=== PATIENT | female | born 1975 | race Caucasian/White ===

== ENCOUNTER 2016-12-12 22:31 | Emergency (ER) | payer MEDICAID ==
[~2016-12-12] VITALS: Ht 157.5 cm; Wt 81.8 kg
[2016-12-12 22:36] VITALS: BP 132/96; TEMP 97.7
[2016-12-12 23:36] LABS: PH 6 (5-8); SQUAMOUS EPITHELIAL 0-2 /hpf; URINE APPEARANCE Hazy; URINE BACTERIA Rare /hpf; URINE BILIRUBIN Negative (NEGATIVE); URINE BLOOD 1+ (NEGATIVE); URINE COLOR Yellow; URINE GLUCOSE Negative (NEGATIVE); URINE KETONE Negative (NEGATIVE); URINE UROBILINOGEN Negative (NEGATIVE)
[2016-12-12] MEDS ORDERED: DOXYCYCLINE HY100 MG PO (23:36)
[2016-12-12] MEDS ORDERED: FLAGYL500 MG PO (23:37)
[2016-12-12] MEDS ORDERED: NORCO 325 MG-51 TAB PO (23:44)
[2016-12-13 00:12] VITALS: PULSE 95
[2016-12-13 03:20] LABS: CHLAMYDIA/TRACH by PCR Female NOT DETECTED; NEISSERIA GON by PCR Female NOT DETECTED
== END 2016-12-13 00:13 | disposition home or self-care (01) ==
LOC: COL.ER 22:31
PROVIDERS: Physician Assistant
DX: N73.9 Female pelvic inflammatory disease, unspecified (principal); A59.09 Other urogenital trichomoniasis
CPT/HCPCS: J0696

== ENCOUNTER → 2018-06-09 | Outpatient (CLI) | payer MEDICAID ==
[~2018-06-09] MED LIST: DOXYCYCLINE HY100 MG PO; FLAGYL500 MG PO; NORCO 325 MG-51 TAB PO
== END ==
LOC: COL.RAD 12:00
DX: C18.2 Malignant neoplasm of ascending colon (principal); K76.89 Other specified diseases of liver; R91.8 Other nonspecific abnormal finding of lung field
CPT/HCPCS: Q9967

== ENCOUNTER 2018-08-07 19:22 | Emergency (ER) | payer MEDICAID ==
[~2018-08-07] VITALS: Ht 160 cm; Wt 77.3 kg
[~2018-08-07 19:22] MED LIST changes: +DILAUDID 2MG TAB2 MG PO
[2018-08-07 19:26] VITALS: TEMP 97.7
[2018-08-07 20:01] LABS: BASO # 0.1 (0.0-0.2); BASO % 1.5 % (0.0-2.0); EOS # 0.1 (0.0-0.7); EOS % 3.3 % (0-4.0); GRAN # 2.3 (1.4-6.5); GRAN % 66.8 % (42.2-75.2); HEMATOCRIT 36.8 % (37.0-47.0); HEMOGLOBIN 12.2 g/dl (12.5-16.0); LYMPH # 0.6 (1.2-3.4); LYMPH % 16.9 % (20.0-51.0); MEAN CELL VOLUME 95 fl (80.0-100.0); MEAN CORPUSCULAR HEMOGLOBIN 31 pg (27.0-31.0); MEAN CORPUSCULAR HGB CONC 33 g/dl (33.0-37.0); MEAN PLATELET VOLUME 10.9 fl (7.4-10.4); MONO # 0.4 (0.1-0.6); MONO % 11.2 % (1.7-9.3); PLATELET COUNT 230 K/mm3 (130-400); RED BLOOD COUNT 3.89 M/mm3 (4.10-5.30)
[2018-08-07 20:14] LABS: BILIRUBIN,TOTAL 1.3 mg/dL (0.0-1.0); C-REACTIVE PROTEIN 1.3 mg/dL (0.0-0.9); CREATININE, serum 0.47 mg/dL (0.52-1.25); TOTAL PROTEIN 7.2 gm/dL (6.4-8.2)
[2018-08-07] MEDS ORDERED: DILAUDID 2MG TAB2 MG PO (21:54)
[2018-08-07 22:06] VITALS: BP 130/66; PULSE 70
== END 2018-08-07 22:08 | disposition home or self-care (01) ==
LOC: COL.ER 19:22
PROVIDERS: Family Medicine
DX: C18.9 Malignant neoplasm of colon, unspecified (principal); C79.9 Secondary malignant neoplasm of unspecified site
CPT/HCPCS: J1170; J2405; J2550; J7030

== ENCOUNTER 2018-09-10 09:45 | Emergency (ER) | payer MEDICAID ==
[~2018-09-10] VITALS: Ht 160 cm; Wt 77.3 kg
[2018-09-10 09:52] VITALS: TEMP 98.8
[2018-09-10] MEDS ORDERED: LONSURF 20 MG-1 EACH PO (10:07)
[2018-09-10] MEDS ORDERED: ZOFRAN8 MG PO (10:07)
[2018-09-10] MEDS ORDERED: ADVIL200 MG PO (10:08)
[2018-09-10] MEDS ORDERED: DILAUDID 4MG TAB4 MG PO (10:08)
[2018-09-10 10:31] LABS: BASO % 0.2 % (0.0-2.0); EOS # 0.1 (0.0-0.7); EOS % 1.8 % (0-4.0); GRAN # 5.1 (1.4-6.5); GRAN % 89.3 % (42.2-75.2); HEMATOCRIT 39.8 % (37.0-47.0); LYMPH # 0.3 (1.2-3.4); LYMPH % 5.8 % (20.0-51.0); MEAN CELL VOLUME 95 fl (80.0-100.0); MEAN CORPUSCULAR HEMOGLOBIN 31 pg (27.0-31.0); MEAN CORPUSCULAR HGB CONC 33 g/dl (33.0-37.0); MEAN PLATELET VOLUME 11.3 fl (7.4-10.4); MONO # 0.1 (0.1-0.6); MONO % 2.5 % (1.7-9.3); PLATELET COUNT 216 K/mm3 (130-400); RED BLOOD COUNT 4.19 M/mm3 (4.10-5.30); REDCELL DISTRIBUTION WIDTH-CV 13.1 % (11.5-14.5)
[2018-09-10 10:42] LABS: ALBUMIN 4.1 gm/dL (3.5-5.0); CALCIUM 9.3 mg/dL (8.4-10.2); CREATININE, serum 0.53 mg/dL (0.52-1.25); POTASSIUM 4.3 mmol/L (3.4-5.0); TOTAL PROTEIN 7.9 gm/dL (6.4-8.2)
[2018-09-10] MEDS ORDERED: PHENERGAN 25 TA25 MG PO (11:39)
[2018-09-10 13:02] VITALS: BP 125/83; PULSE 92
== END 2018-09-10 13:04 | disposition home or self-care (01) ==
LOC: COL.ER 09:45
PROVIDERS: Emergency Medicine
DX: R11.2 Nausea with vomiting, unspecified (principal); R10.9 Unspecified abdominal pain; C18.9 Malignant neoplasm of colon, unspecified; C79.9 Secondary malignant neoplasm of unspecified site; Z79.1 Long term (current) use of non-steroidal anti-inflammatories (NSAID); Z85.038 Personal history of other malignant neoplasm of large intestine; Z90.49 Acquired absence of other specified parts of digestive tract
CPT/HCPCS: C9113; J1170; J2550; J7030; Q9967

== ENCOUNTER 2018-09-17 16:49 | Emergency (ER) | payer MEDICAID ==
[~2018-09-17] VITALS: Ht 157.5 cm; Wt 77.3 kg
[~2018-09-17 16:49] MED LIST changes: +ADVIL200 MG PO; +DILAUDID 4MG TAB4 MG PO; +LONSURF 20 MG-1 EACH PO; +PHENERGAN 25 TA25 MG PO; +ZOFRAN8 MG PO
[2018-09-17 16:54] VITALS: TEMP 98.2
[2018-09-17 17:48] LABS: COLLECTION METHOD CLEAN CATCH
[2018-09-17 18:01] LABS: BASO % 0.9 % (0.0-2.0); EOS # 0.1 (0.0-0.7); EOS % 2.3 % (0-4.0); GRAN # 3.5 (1.4-6.5); GRAN % 74.7 % (42.2-75.2); HEMOGLOBIN 12.3 g/dl (12.5-16.0); LYMPH # 0.8 (1.2-3.4); LYMPH % 16.4 % (20.0-51.0); MEAN CELL VOLUME 95 fl (80.0-100.0); MEAN CORPUSCULAR HEMOGLOBIN 32 pg (27.0-31.0); MEAN CORPUSCULAR HGB CONC 33 g/dl (33.0-37.0); MEAN PLATELET VOLUME 11.5 fl (7.4-10.4); MONO # 0.3 (0.1-0.6); MONO % 5.5 % (1.7-9.3); PLATELET COUNT 236 K/mm3 (130-400); REDCELL DISTRIBUTION WIDTH-CV 12.8 % (11.5-14.5)
[2018-09-17 18:02] LABS: HEMATOCRIT 36.9 % (37.0-47.0)
[2018-09-17 18:05] LABS: ALBUMIN 4.2 gm/dL (3.5-5.0); BILIRUBIN,TOTAL 1.6 mg/dL (0.0-1.0); CALCIUM 9.4 mg/dL (8.4-10.2); CREATININE, serum 0.5 mg/dL (0.52-1.25); INR 1.2 (0.8-3.0); POTASSIUM 3.7 mmol/L (3.4-5.0); PROTHROMBIN TIME 13.9 SECONDS (9.7-12.8); TOTAL PROTEIN 7.8 gm/dL (6.4-8.2)
[2018-09-17 18:07] LABS: MUCOUS Present /lpf; PH 6 (5-8); URINE APPEARANCE Clear; URINE BACTERIA Rare /hpf; URINE BILIRUBIN Negative (NEGATIVE); URINE BLOOD 2+ (NEGATIVE); URINE COLOR Yellow; URINE GLUCOSE Negative (NEGATIVE); URINE KETONE Negative (NEGATIVE); URINE LEUKOCYTE ESTERASE Trace (NEGATIVE); URINE NITRATE Negative (NEGATIVE); URINE PROTEIN(semi-quant) Negative (NEGATIVE); URINE RBC 0-2 /hpf; URINE UROBILINOGEN Negative (NEGATIVE)
[2018-09-17 18:07] LABS: PARTIAL THROMBOPLASTIN TIME 31.6 SECONDS (26.0-37.0)
[2018-09-17] MEDS ORDERED: NORCO 325 MG-101 TAB PO (20:27)
[2018-09-17] MEDS ORDERED: ZOFRAN ODT4 MG SL (20:27)
[2018-09-17] MEDS ORDERED: VANDAZOLE 0.75%70 GM VG (20:27)
[2018-09-17 21:28] VITALS: BP 122/87; PULSE 85
== END 2018-09-17 21:28 | disposition home or self-care (01) ==
LOC: COL.ER 16:49
PROVIDERS: Emergency Medicine
DX: C18.9 Malignant neoplasm of colon, unspecified (principal); C78.7 Secondary malignant neoplasm of liver and intrahepatic bile duct; N76.0 Acute vaginitis; B96.89 Other specified bacterial agents as the cause of diseases classified elsewhere; Z90.49 Acquired absence of other specified parts of digestive tract
CPT/HCPCS: J1170; J2765; J3010; J7030; Q9967

== ENCOUNTER → 2018-09-29 | Outpatient (CLI) | payer MEDICAID ==
[~2018-09-29] MED LIST changes: +NORCO 325 MG-101 TAB PO; +VANDAZOLE 0.75%70 GM VG; +ZOFRAN ODT4 MG SL
== END ==
LOC: COL.RAD 13:43
DX: C18.9 Malignant neoplasm of colon, unspecified (principal); C78.7 Secondary malignant neoplasm of liver and intrahepatic bile duct
CPT/HCPCS: A9585

== ENCOUNTER 2018-10-26 19:59 | Emergency (ER) | payer MEDICAID ==
[~2018-10-26] VITALS: Ht 160 cm; Wt 72.7 kg
[2018-10-26 20:02] VITALS: TEMP 99.6
[2018-10-26 20:48] LABS: MEAN CELL VOLUME 97 fl (80.0-100.0); MEAN CORPUSCULAR HGB CONC 33 g/dl (33.0-37.0); MEAN PLATELET VOLUME 10.3 fl (7.4-10.4); PLATELET COUNT 216 K/mm3 (130-400); RED BLOOD COUNT 2.63 M/mm3 (4.10-5.30); REDCELL DISTRIBUTION WIDTH-CV 17.7 % (11.5-14.5)
[2018-10-26 21:08] LABS: ALANINE AMINOTRANSFERASE 82 U/L (9-52); ALBUMIN 3.5 gm/dL (3.5-5.0); ALKALINE PHOSPHATASE 731 U/L (50-136); ANION GAP 6 mmol/L (7-16); AST,SGOT 134 U/L (15-37); BLOOD UREA NITROGEN 12 mg/dL (7-17); C-REACTIVE PROTEIN 7.6 mg/dL (0.0-0.9); CALCIUM 8.4 mg/dL (8.4-10.2); CARBON DIOXIDE 26 mmol/L (22-30); CHLORIDE 103 mmol/L (98-107); CREATININE, serum 0.57 mg/dL (0.52-1.25); GLUCOSE 99 mg/dL (74-106); LIPASE 57 U/L (23-300); POTASSIUM 3.9 mmol/L (3.4-5.0); SODIUM 135 mmol/L (137-145); TOTAL PROTEIN 7.2 gm/dL (6.4-8.2)
[2018-10-26 21:11] LABS: HEMATOCRIT 25.6 % (37.0-47.0); HEMOGLOBIN 8.4 g/dl (12.5-16.0); MEAN CORPUSCULAR HEMOGLOBIN 32 pg (27.0-31.0)
[2018-10-26] MEDS ORDERED: REGLAN 5MG T5 MG/TAB PO (21:16)
[2018-10-26 21:18] LABS: ANISOCYTOSIS 2+; BAND 6 % (0-10); EOSINOPHIL 3 % (0-4); HYPOCHROMIA 2+; LYMPHOCYTE 39 % (20.0-51.0); MICROCYTOSIS 1+; NEUTROPHILS 42 % (42.0-75.2); PLATELET ESTIMATE NORMAL (NORMAL)
[2018-10-26 21:20] LABS: TROPONIN-I < 0.012 ng/mL (0.000-0.034)
[2018-10-26 21:48] LABS: COLLECTION METHOD CLEAN CATCH
[2018-10-26 21:54] LABS: MUCOUS Present /lpf; PH 6 (5-8); SQUAMOUS EPITHELIAL 0-2 /hpf; URINE APPEARANCE Clear; URINE BACTERIA None Seen /hpf; URINE BILIRUBIN Negative (NEGATIVE); URINE BLOOD Negative (NEGATIVE); URINE COLOR Yellow; URINE GLUCOSE Negative (NEGATIVE); URINE KETONE Negative (NEGATIVE); URINE LEUKOCYTE ESTERASE Negative (NEGATIVE); URINE NITRATE Negative (NEGATIVE); URINE PROTEIN(semi-quant) Negative (NEGATIVE); URINE RBC 0-2 /hpf
[2018-10-26] MEDS ORDERED: LEVAQUIN 5500 MG/TA1 PO (22:57)
[2018-10-26 23:17] VITALS: BP 106/69; PULSE 101
== END 2018-10-26 23:19 | disposition home or self-care (01) ==
LOC: COL.ER 19:59
PROVIDERS: Emergency Medicine
DX: C18.9 Malignant neoplasm of colon, unspecified (principal); D72.819 Decreased white blood cell count, unspecified
CPT/HCPCS: J1170; J2405; J3010; J7030; Q9967

== ENCOUNTER 2018-11-01 16:57 | Observation (INO) | payer MEDICAID ==
[~2018-11-01] VITALS: Ht 162.6 cm; Wt 78.9 kg
[~2018-11-01 16:57] MED LIST changes: +LEVAQUIN 5500 MG/TA1 PO; +REGLAN 5MG T5 MG/TAB PO
[2018-11-01 17:56] VITALS: BP 105/67; PULSE 85; TEMP 98.7
[2018-11-01] MEDS ORDERED: PRILOSEC10 MG PO (18:20)
[2018-11-01] MEDS ORDERED: ASPIRIN 81M81 MG/TA2 PO (18:20)
[2018-11-01] MEDS ORDERED: VITAMIN D31000 I1 PO (18:20)
--- NOTE | 2018-11-01 19:02 | NUR ---
Pt report given to ANGELINA Younger. Pt is A/O x3. Her breathing is even and unlabored on RA, no SOB. Pt currently reports R abdominal pain. Currently no nausea, pt requesting food. No N/T. POC discussed with patient. PAC accessed in office. Isolation precautions in place. Family at bedside, will continue to monitor.
[2018-11-01 19:29] VITALS: BP 101/72; PULSE 90; TEMP 98.6
[2018-11-01 19:57] LABS: BASO % 0.6 % (0.0-2.0); EOS % 0.6 % (0-4.0); GRAN # 1.7 (1.4-6.5); LYMPH # 0.8 (1.2-3.4); MEAN CELL VOLUME 98 fl (80.0-100.0); MEAN CORPUSCULAR HGB CONC 33 g/dl (33.0-37.0); MONO # 0.7 (0.1-0.6); MONO % 21.2 % (1.7-9.3); PLATELET COUNT 254 K/mm3 (130-400); RED BLOOD COUNT 2.69 M/mm3 (4.10-5.30); REDCELL DISTRIBUTION WIDTH-CV 19.1 % (11.5-14.5)
[2018-11-01 20:00] LABS: HEMATOCRIT 26.4 % (37.0-47.0); HEMOGLOBIN 8.8 g/dl (12.5-16.0); MEAN CORPUSCULAR HEMOGLOBIN 33 pg (27.0-31.0)
--- NOTE | 2018-11-01 20:00 | NUR ---
Patient resting in bed with family at bedside. Reports some pain in lower abdomen/chest- given PO dilaudid for pain. Assessment commpleted. Fluids started at 100 mls/hr. Maximipime administered. Infectious disease consulted- no new orders at this time. Ambulated with SBA to restroom.
[2018-11-01 20:02] LABS: INR 1.4 (0.8-3.0); PROTHROMBIN TIME 16.2 SECONDS (9.7-12.8)
[2018-11-01 20:08] LABS: ALBUMIN 3.5 gm/dL (3.5-5.0); BILIRUBIN,TOTAL 3.2 mg/dL (0.0-1.0); CALCIUM 8.8 mg/dL (8.4-10.2); CREATININE, serum 0.48 mg/dL (0.52-1.25); POTASSIUM 3.4 mmol/L (3.4-5.0); TOTAL PROTEIN 7.3 gm/dL (6.4-8.2)
[2018-11-01 21:38] LABS: COLLECTION METHOD CLEAN CATCH
[2018-11-01 21:56] LABS: MUCOUS Present /lpf; PH 7 (5-8); SQUAMOUS EPITHELIAL 0-2 /hpf; URINE APPEARANCE Clear; URINE BACTERIA None Seen /hpf; URINE BILIRUBIN Negative (NEGATIVE); URINE BLOOD Negative (NEGATIVE); URINE COLOR Yellow; URINE GLUCOSE Negative (NEGATIVE); URINE KETONE Negative (NEGATIVE); URINE LEUKOCYTE ESTERASE Negative (NEGATIVE); URINE NITRATE Negative (NEGATIVE); URINE PROTEIN(semi-quant) Negative (NEGATIVE); URINE RBC 0-2 /hpf; URINE UROBILINOGEN Negative (NEGATIVE)
[2018-11-01 23:25] VITALS: BP 119/72; PULSE 101; TEMP 100.2
--- NOTE | 2018-11-01 23:33 | NUR ---
Patient c/o some anxiety and difficulty sleeping. COREY Mendosa ordered 0.5 mg Ativan, administered to patient. Temperature of 100.2, Navya notified, continue to monitor, blood cultures ordered.
--- NOTE | 2018-11-02 01:23 | NUR ---
Patient given dilaudid 4 mg PO for pain, and wants to sleep. Given controls for lights. Patient had no other concers at this time.
[2018-11-02 03:55] VITALS: BP 110/71; PULSE 102; TEMP 98.8
--- NOTE | 2018-11-02 05:22 | NUR ---
Patient slept on/off last night. Given ativan and dilaudid for sleep/anxiety/pain. Temperature elevated around 0000, down to WNL this AM. IV antibiotics administered.
[2018-11-02 08:20] VITALS: BP 115/73; PULSE 98; TEMP 97.4
--- NOTE | 2018-11-02 09:40 | NUR ---
Patient alert and oriented x 4 and able to make needs known. Complained of pain to right side of abdomen. Given PRN Dilaudid per orders. Denies having needs at this time. Patient ordered breakfast. Sitting up in bed at this time.
--- NOTE | 2018-11-02 09:42 | NUR ---
LEON and LEON student met with the patient and patient's nitrator operator to discuss discharge plan. The patient lives in [place] with her two sons. Daniel who is twenty-five and her youngest son who is eight. She reports needing occasional assistance with ADLs and does not use any DME. She states that she receives support from her sons and friends in the community. The patient does not have a PCP, but was interested in being set up with Dr. Maye Leyva. LEON informed the patient's PA. She receives her medications at the [facility] and she reports no difficulties obtaining her meds. The patient does not have advanced directives, but she was interested in obtaining the form for DPOA-HC. LEON provided. The patient plans to return home upon discharge. SW to continue to follow.
--- NOTE | 2018-11-02 12:36 | NUR ---
Patient sitting up on side of bed upon entering room. Stated she felt a little dizzy, and had an upset stomach. Patient then went to the bathroom and had large amount of emesis. Emesis was yellow with small amount of food particles present.
[2018-11-02 12:44] VITALS: BP 125/82; PULSE 125; TEMP 98.6
[2018-11-02 15:00] VITALS: BP 113/72; PULSE 110; TEMP 98.8
--- NOTE | 2018-11-02 16:53 | NUR ---
Patient complained of feeling anxious. Given PRN Ativan per orders. Denies having nausea at this time. Has been sipping on fluids.
--- NOTE | 2018-11-02 18:18 | NUR ---
Complained of leve 7 pain to right side. Given PRN Dilaudid per orders, along wtih PRN Zofran per patient request due to medication making her feel nauseous last time she took it. Patient is off of precautions at this time, as respiratory virus panel came back negative. Sitting up in bed watching TV at this time. Call light is within reach. Three sons at bedside.
--- NOTE | 2018-11-02 19:23 | NUR ---
PT LAYING IN BED A+OX4, CHILDREN AT BEDSIDE. PT REPORTS PAIN ON RIGHT SIDE OF CHEST, PRN MEDS GIVEN. PORT IS FLUSHING WELL. NO NEEDS AT THIS TIME. SHIFT ASSESSMENT COMPLETE. CALL LIGHT IN REACH
[2018-11-02 20:14] VITALS: BP 105/64; PULSE 94; TEMP 99.4
--- NOTE | 2018-11-02 22:28 | NUR ---
pt is jaundice in eyes and skin. reports feeling cold- blanket given. no needs at this time. call light inreach
[2018-11-02 23:55] VITALS: BP 111/60; PULSE 97; TEMP 99
[2018-11-03] VITALS (7 sets, daily range): BP systolic 92–117; BP diastolic 53–77; PULSE 91–101; TEMP 98.6–101
--- NOTE | 2018-11-03 03:24 | NUR ---
pt reports sleeping well. feeling cold, denied needs for warm blanket- pt has 3 blankets on. no N/V. no needs at this time. call light in reach
--- NOTE | 2018-11-03 04:18 | NUR ---
pt has a fever 100.5. reports no needs at this time.call light in reach
--- NOTE | 2018-11-03 05:17 | NUR ---
pt had an uneventful night. denied N/V, pain. temp of 100.5 at 0300. pt reports feeling cold. no needs at this time.call light in reach .
[2018-11-03 05:59] LABS: BASO % 0.8 % (0.0-2.0); GRAN # 2.5 (1.4-6.5); GRAN % 62.3 % (42.2-75.2); LYMPH # 0.7 (1.2-3.4); LYMPH % 17.3 % (20.0-51.0); MEAN CELL VOLUME 101 fl (80.0-100.0); MEAN CORPUSCULAR HGB CONC 32 g/dl (33.0-37.0); MEAN PLATELET VOLUME 10.9 fl (7.4-10.4); MONO # 0.7 (0.1-0.6); MONO % 17.8 % (1.7-9.3); PLATELET COUNT 234 K/mm3 (130-400); RED BLOOD COUNT 2.49 M/mm3 (4.10-5.30); REDCELL DISTRIBUTION WIDTH-CV 19.2 % (11.5-14.5)
[2018-11-03 06:00] LABS: HEMATOCRIT 25.1 % (37.0-47.0); HEMOGLOBIN 8.1 g/dl (12.5-16.0); MEAN CORPUSCULAR HEMOGLOBIN 33 pg (27.0-31.0)
[2018-11-03 06:17] LABS: CALCIUM 8.6 mg/dL (8.4-10.2); CREATININE, serum 0.5 mg/dL (0.52-1.25); POTASSIUM 3.6 mmol/L (3.4-5.0); TOTAL PROTEIN 6.6 gm/dL (6.4-8.2)
--- NOTE | 2018-11-03 08:12 | NUR ---
Assessment complete.patient awake,a/ox4.rates pain at 2/10.patient eyes and skin are jaundiced.patient still has fevers.last fever was 100.3.ivf infusing to jammie cath to right chest.patient denies any other concerns at this time.will continue to monitor.call light in reach
--- NOTE | 2018-11-03 09:17 | NUR ---
Initial visit; Patient thanked Blower Insulator for looking in on her and offering prayer and encouragement. Blower Insulator will follow up.
--- NOTE | 2018-11-03 10:03 | NUR ---
Follow-up visit; Mrp Controller looked in on Mehreen following "Rounding" by Physician and staff. Patient thanked Mrp Controller and said she would let her know if she would like to talk later.
--- NOTE | 2018-11-03 11:35 | NUR ---
Met with pt regarding her care goals. She reports that she is changing oral medications for her cancer with the goal of keeping her cancer under control for as long as she can. She has a 25 year old son and an 8 year old son at home. Money is tight but she reports that they are managing. It is her goal to keep her cancer under some control for as long as possible to have time with her sons. She understands that this is not a cure but will help her get more time. Support provided.
--- NOTE | 2018-11-03 19:12 | NUR ---
report given to ANGELINA Younger.patient c/o right sided sharp pain,prn Dilaudid offered but patient declined and stated that she walked and it got better.Patient to have port to right chest taken out tomorrow.pt aware of surgery and NPO status as of midnight.pt remains febrile.No other concerns voiced at this time.
--- NOTE | 2018-11-03 19:20 | NUR ---
Patient resting in bed with son at bedside. Had a short episode of stabbing pain to right side of abdomen, lasting about 3 minutes, patient stood up and started walking around and pain subsided. Antibiotic administered, assessment completed. Patient now eating dinner and has no other needs at this time. Planning to take a shower later this evening.
--- NOTE | 2018-11-03 23:30 | NUR ---
Patient took a shower, IVF restarted after shower. Patient given new gown and socks. Given ambien for sleep, ordered PRN. No futher needs at this time and is getting ready to go to sleep.
[2018-11-04] VITALS (10 sets, daily range): BP systolic 92–104; BP diastolic 57–76; PULSE 62–85; TEMP 97.7–98.6
--- NOTE | 2018-11-04 00:30 | NUR ---
Patient spiked a temp of 101.0. COREY Mendosa notified, doesn't want to treat with tylenol due to elevated liver enzymes. This nurse is going to provide cool wash cloths for patient to try and cool her down. Will recheck if temperature continues to climb, will notify COREY Mendosa.
--- NOTE | 2018-11-04 05:23 | NUR ---
Patient slept on/off last night. Spiked a temperature of 101.0 at around 0000. Temp came down with cool cloths applied to neck and forehead. No pain, vitals stable. Took a shower last night. Npo since midnight for removal of port today. No further needs at this time.
[2018-11-04 06:01] LABS: BASO % 0.7 % (0.0-2.0); EOS % 0.7 % (0-4.0); GRAN # 2.8 (1.4-6.5); GRAN % 65.2 % (42.2-75.2); LYMPH # 0.8 (1.2-3.4); LYMPH % 17.7 % (20.0-51.0); MEAN CELL VOLUME 101 fl (80.0-100.0); MEAN CORPUSCULAR HGB CONC 32 g/dl (33.0-37.0); MEAN PLATELET VOLUME 11.1 fl (7.4-10.4); MONO # 0.7 (0.1-0.6); MONO % 15.2 % (1.7-9.3); PLATELET COUNT 256 K/mm3 (130-400); RED BLOOD COUNT 2.53 M/mm3 (4.10-5.30); REDCELL DISTRIBUTION WIDTH-CV 19.2 % (11.5-14.5)
[2018-11-04 06:11] LABS: HEMATOCRIT 25.6 % (37.0-47.0); HEMOGLOBIN 8.2 g/dl (12.5-16.0); MEAN CORPUSCULAR HEMOGLOBIN 32 pg (27.0-31.0)
[2018-11-04 06:15] LABS: ALBUMIN 3.1 gm/dL (3.5-5.0); CALCIUM 8.6 mg/dL (8.4-10.2); CREATININE, serum 0.52 mg/dL (0.52-1.25); POTASSIUM 3.5 mmol/L (3.4-5.0); TOTAL PROTEIN 6.8 gm/dL (6.4-8.2)
--- NOTE | 2018-11-04 08:16 | NUR ---
Patient is NPO. Spoke with Dr. Groves. Order to hold morning Heparin. Reports he will have surgical staff come get patient around 1130, go over preop with patient downstairs, and planning on having surgery to remove portacath to right chest at 1200. NS running at 50ml/hr via portacath. Reports pain to right side is at a 4 at this time, and declines wanting PRN pain medication. Voices no needs at this time. Resting in bed. Requested blinds to be pulled up to let in natural light.
--- NOTE | 2018-11-04 08:41 | NUR ---
Pt is A+Ox3, pleasant, denies SOB and CP but c/o chronic discomfort to rt upper chest (port site) that radiates up rt neck with certain movements. pt denies need for pain meds at this time. Port site to RU s redness and swellingm, fluids infusing at 50 cc/hr. Cap refill brisk, bilateral radial, pedal adn post tibial pulses 2+, finger grasp equal, no edema in extremities, etc. Independent to bathroom. Call light in reach, no further needs
--- NOTE | 2018-11-04 09:25 | NUR ---
DPOA-HC form completed and notorized. Copies given to pt. We reviewed her plans at home if she should become ill and need assistance and she actually seems to have a workable plan in place. She reports that she will be starting her 4th chemotherapy drug upon reciept and has several other options available to her. Support provided. She is hopeful for discharge later today.
--- NOTE | 2018-11-04 11:44 | NUR ---
Peripheral IV started to right hand prior to patient going down to surgery. Called and gave report to anesthesia at 1140, and patient was taken down to surgery at that time as well.
[2018-11-04] MEDS ORDERED: LEVAQUIN 5500 MG/TA1 PO (14:00)
[2018-11-04] MEDS ORDERED: DILAUDID 4MG TAB4 MG PO (14:02)
--- NOTE | 2018-11-04 14:25 | NUR ---
Patient arrived from surgery around 1230. Patient tired, but smiling and voiced no needs at that time. Went to sleep for a while. Patient awake and drinking coffee at this time. Notified of order to discharge. Voiced no concerns at this time. Encouraged to try and eat something before leaving. States son will be in after 1600 and she can discharge at that time.
[2018-11-04] MEDS ORDERED: AMBIEN 5MG TABLE5 MG PO (15:36)
[2018-11-04] MEDS ORDERED: ATIVAN 0.50.5 MG/TAB PO (15:36)
--- NOTE | 2018-11-04 16:54 | NUR ---
Patient discharged at this time. Via [facility] staff assisted patient out.
== END 2018-11-04 16:54 | disposition home or self-care (01) ==
LOC: MEDICAL 16:57
PROVIDERS: Internal Medicine; Nurse Practitioner Family; Physician Assistant; ADMIT Hospitalist
DX: T80.211A Bloodstream infection due to central venous catheter, initial encounter (principal); A41.9 Sepsis, unspecified organism; C78.7 Secondary malignant neoplasm of liver and intrahepatic bile duct; C78.02 Secondary malignant neoplasm of left lung; C78.01 Secondary malignant neoplasm of right lung; C18.9 Malignant neoplasm of colon, unspecified; I89.0 Lymphedema, not elsewhere classified; R52 Pain, unspecified; E44.0 Moderate protein-calorie malnutrition; Z68.29 Body mass index [BMI] 29.0-29.9, adult; Z92.3 Personal history of irradiation; Z92.21 Personal history of antineoplastic chemotherapy; Z79.82 Long term (current) use of aspirin; Z79.899 Other long term (current) drug therapy; H66.92 Otitis media, unspecified, left ear
CPT/HCPCS: A4216; G0378; G0379; J0692; J1644; J2250; J2405; J2704; J3010; J7030

== ENCOUNTER 2018-11-26 10:27 | Emergency (ER) | payer MEDICAID ==
[~2018-11-26] VITALS: Ht 160 cm; Wt 72.7 kg
[~2018-11-26 10:27] MED LIST changes: +AMBIEN 5MG TABLE5 MG PO; +ASPIRIN 81M81 MG/TA2 PO; +ATIVAN 0.50.5 MG/TAB PO; +PRILOSEC10 MG PO; +VITAMIN D31000 I1 PO
[2018-11-26 10:38] VITALS: TEMP 97.8
[2018-11-26 11:04] LABS: ALBUMIN 3.2 gm/dL (3.5-5.0); BILIRUBIN,TOTAL 19.4 mg/dL (0.0-1.0); CALCIUM 8.8 mg/dL (8.4-10.2); CREATININE, serum 1.86 mg/dL (0.52-1.25); POTASSIUM 3.1 mmol/L (3.4-5.0); TOTAL PROTEIN 7.9 gm/dL (6.4-8.2)
[2018-11-26] MEDS ORDERED: MULTI VITAMINS1 TAB PO (11:08)
[2018-11-26 11:10] LABS: BASO # 0.1 (0.0-0.2); BASO % 0.4 % (0.0-2.0); EOS # 0.1 (0.0-0.7); EOS % 0.6 % (0-4.0); GRAN # 16.7 (1.4-6.5); GRAN % 88.7 % (42.2-75.2); LYMPH # 0.8 (1.2-3.4); LYMPH % 4.3 % (20.0-51.0); MEAN CELL VOLUME 100 fl (80.0-100.0); MEAN CORPUSCULAR HGB CONC 33 g/dl (33.0-37.0); MEAN PLATELET VOLUME 12.5 fl (7.4-10.4); MONO # 0.9 (0.1-0.6); MONO % 4.8 % (1.7-9.3); PLATELET COUNT 302 K/mm3 (130-400); RED BLOOD COUNT 2.82 M/mm3 (4.10-5.30); REDCELL DISTRIBUTION WIDTH-CV 16.2 % (11.5-14.5)
[2018-11-26 11:13] LABS: HEMATOCRIT 28.3 % (37.0-47.0); HEMOGLOBIN 9.3 g/dl (12.5-16.0); MEAN CORPUSCULAR HEMOGLOBIN 33 pg (27.0-31.0)
[2018-11-26 11:17] LABS: INR 1.5 (0.8-3.0); PROTHROMBIN TIME 17.2 SECONDS (9.7-12.8)
[2018-11-26 11:19] LABS: PARTIAL THROMBOPLASTIN TIME 29.2 SECONDS (26.0-37.0)
[2018-11-26 11:46] LABS: COLLECTION METHOD CLEAN CATCH
[2018-11-26 12:00] LABS: AMORPHOUS CRYSTAL Present /uL; MUCOUS Present /lpf; PH 5 (5-8); URINE APPEARANCE Cloudy; URINE BACTERIA Rare /hpf; URINE BILIRUBIN Positive (NEGATIVE); URINE BLOOD Negative (NEGATIVE); URINE COLOR Amber; URINE GLUCOSE Negative (NEGATIVE); URINE KETONE Negative (NEGATIVE); URINE LEUKOCYTE ESTERASE Negative (NEGATIVE); URINE NITRATE Negative (NEGATIVE); URINE PROTEIN(semi-quant) Negative (NEGATIVE); URINE RBC 0-2 /hpf; URINE UROBILINOGEN >=4.0 mg/dL (NEGATIVE); WHITE BLOOD CELL CAST >12 /lpf
[2018-11-26 14:58] VITALS: BP 100/68; PULSE 92
== END 2018-11-26 14:40 | disposition short-term general hospital (02) ==
LOC: COL.ER 10:27
PROVIDERS: Emergency Medicine
DX: E80.6 Other disorders of bilirubin metabolism (principal); N17.9 Acute kidney failure, unspecified; C18.9 Malignant neoplasm of colon, unspecified; C78.7 Secondary malignant neoplasm of liver and intrahepatic bile duct; Z90.89 Acquired absence of other organs; Z79.82 Long term (current) use of aspirin
CPT/HCPCS: J0780; J1170; J2405; J2543; J3010; J3370; J7030; J7050